=== PATIENT | male | born 1960 | race Caucasian/White ===

== ENCOUNTER → 2017-04-13 | Outpatient (CLI) | payer BC ==
[2017-04-13 14:00] LABS: ALBUMIN 4.4 g/dl (3.3-4.9); ALBUMIN/GLOBULIN RATIO 1.51; BILIRUBIN,INDIRECT 0.4 mg/dl (0-1.1); BILIRUBIN,TOTAL 0.4 mg/dl (0.2-1.3); CALCIUM 9.1 mg/dl (8.4-10.2); CREATININE 0.96 mg/dl (0.61-1.24); POTASSIUM 4.4 mmol/L (3.5-5.1); TOTAL PROTEIN 7.3 g/dl (6.1-8.1)
[2017-04-13 15:17] LABS: BASOPHIL # 0.1 10^3/ul (0.0-0.1); BASOPHILS % 0.9 % (0.0-2.0); EOSINOPHILS # 0.2 10^3/ul (0.0-0.5); EOSINOPHILS % 2.5 % (0.0-7.0); HEMATOCRIT 46.9 % (42.0-52.0); HEMOGLOBIN 15.8 g/dl (14.0-18.0); LYMPHOCYTES # 1.8 10^3/ul (0.8-2.9); LYMPHOCYTES % 27.8 % (15.0-51.0); MEAN CORPUSCULAR HEMOGLOBIN 30.2 pg (29.0-33.0); MEAN CORPUSCULAR HGB CONC 33.7 g/dl (32.0-37.0); MEAN CORPUSCULAR VOLUME 89.7 fl (82.0-101.0); MEAN PLATELET VOLUME 11.2 fl (7.4-10.4); MONOCYTE # 0.6 10^3/ul (0.3-0.9); MONOCYTES % 9.3 % (0.0-11.0); NEUTROPHIL # 3.8 10^3/ul (1.6-7.5); NEUTROPHILS % 59.2 % (39.0-77.0); PLATELET COUNT 277 10^3/UL (140-415); RED BLOOD COUNT 5.23 10^6/ul (4.70-6.10); RED CELL DISTRIBUTION WIDTH 12.7 % (11.5-14.5); WHITE BLOOD COUNT 6.5 10^3/ul (4.8-10.8)
== END | disposition home or self-care (01) ==
LOC: LAB 12:50
PROVIDERS: ATTEND Internal Medicine Gastroenterology
DX: R19.4 Change in bowel habit (principal); K62.5 Hemorrhage of anus and rectum; R63.4 Abnormal weight loss; Z12.11 Encounter for screening for malignant neoplasm of colon
CPT/HCPCS: 80053; 82150; 83690; 85025; 85651

== ENCOUNTER 2017-04-28 13:01 | Day surgery (SDC) | payer BC ==
[~2017-04-28] VITALS: Ht 189.2 cm; Wt 101.5 kg
[2017-04-28 13:19] VITALS: BP 126/75; PULSE 59; RESP 24
[2017-04-28] MEDS ORDERED: ASPI81TA3 PO (13:30)
[2017-04-28] MEDS ORDERED: LIDOCAINE 2% (SDV) 5 ML INJ ONE (13:31)
[2017-04-28] MEDS ORDERED: PROPOFOL 40 ML ONE (13:31)
[2017-04-28 13:36] VITALS: Ht 189.2 cm; Wt 101.5 kg
--- NOTE | 2017-04-28 14:34 | OPPN ---
Date/Time of Note Date/Time of Note DATE: 04/28/17 TIME: 14:22 Proc Note GI Free Text/Dictation Colonoscopy Procedure date: Apr 28, 2017 Pre-procedure Diagnosis Screening, Change in bm Post-procedure Diagnosis 3 Diminutive Rectosigmoid polyps Operation Performed Colonoscopy and biopsy Surgeon: BALA BURROUGHS MD Anesthesia Type: general Anesthesiologist: GUANAKITO CHIRINOS Estimated blood loss: none Transfusion Required: no Complications: no Pt Condition post procedure: stable Operative\Procedure Findings After informed consent, the patient was sedated per anesthesia. The olympus video colonoscope was passed into the rectum and through the entire colon to the cecum. The appendiceal orifice and ileocecal valve were identified. Normal ileum was encountered and biopsies were performed. The prep was good. The instrument was removed through the cecum, ascending, transverse, descending and sigmoid colon. The mucosa throughout appeared normal. End Worker biopsies were performed throughout the colon and rectum. There was no untoward bleeding from any of the biopsy sites. In the rectosigmoid there were 3 diminutive polypoid lesions less than 5 mm size. These were removed in toto with jumbo biopsy forceps. Instrument was removed patient's rectum. Patient tolerated well. Complications: None Withdrawal time: 20 minutes BALA BURROUGHS MD Apr 28, 2017 14:33
[2017-04-28 14:52] VITALS: BP 101/71; PULSE 56; RESP 24
== END 2017-04-28 15:11 | disposition home or self-care (01) ==
LOC: GIL 13:01
PROVIDERS: ATTEND Internal Medicine Gastroenterology
DX: R19.4 Change in bowel habit (principal); D12.7 Benign neoplasm of rectosigmoid junction

== ENCOUNTER → 2017-06-01 | Outpatient (CLI) | payer BC ==
[~2017-06-01] MED LIST: ASPI81TA3 PO
== END | disposition home or self-care (01) ==
LOC: LAB 13:11
PROVIDERS: ATTEND Internal Medicine Gastroenterology
DX: D72.829 Elevated white blood cell count, unspecified (principal)

== ENCOUNTER → 2017-08-10 | Outpatient (CLI) | payer BC ==
[2017-08-10 12:50] LABS: BASOPHIL # 0.1 10^3/ul (0.0-0.1); BASOPHILS % 1.3 % (0.0-2.0); EOSINOPHILS # 0.2 10^3/ul (0.0-0.5); EOSINOPHILS % 3.3 % (0.0-7.0); HEMATOCRIT 47.1 % (42.0-52.0); HEMOGLOBIN 16.2 g/dl (14.0-18.0); LYMPHOCYTES # 1.9 10^3/ul (0.8-2.9); LYMPHOCYTES % 26.8 % (15.0-51.0); MEAN CORPUSCULAR HEMOGLOBIN 30.4 pg (29.0-33.0); MEAN CORPUSCULAR HGB CONC 34.4 g/dl (32.0-37.0); MEAN CORPUSCULAR VOLUME 88.4 fl (82.0-101.0); MEAN PLATELET VOLUME 10.5 fl (7.4-10.4); MONOCYTE # 0.6 10^3/ul (0.3-0.9); MONOCYTES % 8.3 % (0.0-11.0); NEUTROPHIL # 4.2 10^3/ul (1.6-7.5); PLATELET COUNT 233 10^3/UL (140-415); RED BLOOD COUNT 5.33 10^6/ul (4.70-6.10); RED CELL DISTRIBUTION WIDTH 12.7 % (11.5-14.5)
[2017-08-10 12:51] LABS: ADD UMIC NO; UR ASCORBIC ACID NEGATIVE (NEGATIVE); UR BILIRUBIN (Dip) NEGATIVE (NEGATIVE); UR BLOOD (Dip) NEGATIVE (NEGATIVE); UR CLARITY CLEAR (CLEAR); UR COLOR STRAW (YELLOW); UR GLUCOSE (Dip) NEGATIVE (NEGATIVE); UR KETONES (Dip) NEGATIVE (NEGATIVE); UR LEUKOCYTE ESTERASE (Dip) NEGATIVE Leu/ul (NEGATIVE); UR NITRITE (Dip) NEGATIVE (NEGATIVE); UR SPECIFIC GRAVITY (Dip) 1.003 (1.003-1.030); UR TOTAL PROTEIN (Dip) NEGATIVE (NEGATIVE); UR UROBILINOGEN (Dip) NEGATIVE (NEGATIVE)
[2017-08-10 13:12] LABS: ALBUMIN 4.4 g/dl (3.3-4.9); ALBUMIN/GLOBULIN RATIO 1.46; BILIRUBIN,INDIRECT 0.6 mg/dl (0-1.1); BILIRUBIN,TOTAL 0.6 mg/dl (0.2-1.3); C-REACTIVE PROTEIN 0.5 mg/dl (0.0-0.9); CALCIUM 9.4 mg/dl (8.4-10.2); CHOL/HDL RATIO 4.7 RATIO; CREATININE 0.91 mg/dl (0.61-1.24); POTASSIUM 4.5 mmol/L (3.5-5.1); TOTAL PROTEIN 7.4 g/dl (6.1-8.1)
[2017-08-10 14:43] LABS: PROSTATE SPECIFIC ANTIGEN 2.2 ng/ml (0.0-4.0); THYROID STIMULATING HORMONE 2.97 MIU/L (0.465-4.680)
== END | disposition home or self-care (01) ==
LOC: LAB 12:11
PROVIDERS: ATTEND Family Medicine
DX: Z13.6 Encounter for screening for cardiovascular disorders (principal); Z00.00 Encounter for general adult medical examination without abnormal findings
CPT/HCPCS: 80053; 80061; 81003; 84153; 84154; 84443; 85025; 86140